=== PATIENT | female | born 1990 | race Two or more races ===

== ENCOUNTER 2025-06-08 09:19 | Emergency (ER) | payer MEDICAID, OTHER ==
[~2025-06-08] VITALS: Ht 177.8 cm; Wt 81.6 kg
[2025-06-08 09:35] VITALS: BP 132/94; TEMP 98.3; O2SAT 98
== END 2025-06-08 10:09 | disposition left against medical advice (07) ==
LOC: ER 09:22
DX: Z53.21 Procedure and treatment not carried out due to patient leaving prior to being seen by health care provider (principal)